=== PATIENT | female | born 1985 | race Caucasian/White ===

== ENCOUNTER 2019-10-26 21:16 | Emergency (ER) | payer BC, MEDICAID ==
[~2019-10-26] VITALS: Ht 160 cm; Wt 59.0 kg
[2019-10-26] MEDS ORDERED: [UNRECOGNIZED DRUG - REMARK] (21:31)
[2019-10-26 21:53] LABS: *BILIRUBIN,URIN NEGATIVE (NEGATIVE); *BLOOD, URINE 2+ (NEGATIVE); *CLARITY,URINE CLEAR (CLEAR); *COLOR,URINE LIGHT YELLOW (YELLOW); *KETONES,URINE NEGATIVE (NEGATIVE); *UROBILINOGEN,URINE 0.2 E.U./dl (NORMAL); LEUKOCYTE ESTERASE ,URINE NEGATIVE (NEGATIVE); NITRITE, URINE NEGATIVE (NEGATIVE); UGLUCOSE NEGATIVE (NEGATIVE)
[2019-10-26 21:56] LABS: *URINE HCG, QUAL NEGATIVE (NEGATIVE)
[2019-10-26] MEDS ORDERED: PHENAZOPYRIDINE HCL 100 MG TABLET PO ONE (22:00)
[2019-10-26 22:07] LABS: BACTERIA,URINE NONE SEEN /HPF (NONE SEEN); SQUAMOUS EPITHELIAL CELL,UR FEW /HPF (NONE SEEN); WBC,URINE 0-3 /HPF (0-3)
[2019-10-26] MEDS ORDERED: PHENAZOPYRIDINE HCL 100 MG TABLET ONE (22:17)
--- NOTE | 2019-10-26 22:23 | NUR ---
Patient discharged to home in stable condition. Written and verbal after care instructions given. Patient verbalizes understanding of instructions. Stressed follow up or return to ER for worsening s/s.
[2019-10-26 22:24] VITALS: BP 125/77
== END 2019-10-26 22:31 | disposition home or self-care (01) ==
LOC: ER 21:16
DX: R30.0 Dysuria (principal); R31.29 Other microscopic hematuria; Z87.442 Personal history of urinary calculi
CPT/HCPCS: 84703; 87086; A4663